=== PATIENT | female | born 1980 | race African-American/Black ===

== ENCOUNTER 2020-03-30 13:17 | Day surgery (SDC) | payer OTHER, SELFPAY ==
[2020-03-30 13:59] VITALS: BMI 22.7
[2020-03-30] MEDS ORDERED: hydrALAZINE 20 MG/ML VIAL SLOW IVP PRN (14:01)
--- NOTE | 2020-03-31 08:02 | PRG ---
DATE OF SERVICE: 03/30/2020 PRIMARY OB: None. CHIEF COMPLAINT: Decreased movement. HISTORY OF PRESENT ILLNESS: The patient is a 40-year-old, G2, P1, living 0 female with an intrauterine at 36 weeks and 3 days, who moved here from [place] last Monday. The patient reports that she has not been feeling her baby move as often as she used to. She reports that she did kick counting yesterday that was fine last night, but this morning, it has been concerning. She has a history of a 29-week stillbirth delivery about 20 years ago. She also has a past medical history significant for sarcoidosis, for which, she is not needing treatment at this time. The patient reports that she had been receiving regular care in [place] prior to her moving here. The patient denies fever, cough, headache, or shortness of breath. She does report she is starting to feel in the last month or so chest pains consistent with her sarcoidosis that are not her primary concern at this time. The patient denies nausea or vomiting. She does report constipation has been a chronic problem. Denies diarrhea. Denies any new rashes, hip problems, knee problems, muscle weakness. She denies vaginal bleeding, change in her discharge, urinary urgency, or frequency. PAST MEDICAL HISTORY: Sarcoidosis and anemia. PAST SURGICAL HISTORY: Negative. ALLERGIES: NO KNOWN DRUG ALLERGIES. MEDICATIONS: vitamins, iron, and calcium. OB LABS: Unavailable at the time of dictation. REVIEW OF SYSTEMS: Per HPI. PHYSICAL EXAMINATION: VITAL SIGNS: Blood pressure is 136/85, heart rate of 92, respiratory rate 16. GENERAL: She appears to be in no acute distress. She is alert and oriented, cooperative, pleasant to interact with. HEAD: Normocephalic and atraumatic. LUNGS: Clear to auscultation bilaterally. HEART: Has a regular rate and rhythm. ABDOMEN: Gravid and soft, nontender. EXTREMITIES: Nontender, nonedematous. : Has been deferred at this time. heart tracing shows the fetus with a baseline in the 130s with moderate long-term variability, positive 15 x 15 accelerations, no decelerations, no contractions on the monitor. Group B strep has been collected by the nursing staff. ASSESSMENT AND PLAN: The patient is a 40-year-old, G2, P1, living 0 female with an intrauterine at 36 weeks and 3 days by her stated due date. The patient has a reactive NST. Reassurance has been given to her concerning her baby's immediate status. She has been counseled to seek medical attention quickly, also to acquire her record as this will help facilitate establishing care with a provider. We did offer to introduce her to the Family Practice Residency Program here as they are here staffing the hospital and may be able to quickly see her for this care. The patient was acceptable to this and she has been introduced to the Family Practice Team. Group B strep has been collected as she is due now for that testing. Otherwise, no other testing has been done. The patient will be discharged home with reassurance. Job ID: [id number]
== END 2020-03-30 15:15 | disposition home or self-care (01) ==
LOC: L&D/OP 13:17
PROVIDERS: ATTEND Obstetrics & Gynecology
DX: O36.8130 Decreased fetal movements, third trimester, not applicable or unspecified (principal); O09.293 Supervision of pregnancy with other poor reproductive or obstetric history, third trimester; O99.013 Anemia complicating pregnancy, third trimester; D64.9 Anemia, unspecified; Z3A.36 36 weeks gestation of pregnancy; Z79.899 Other long term (current) drug therapy
CPT/HCPCS: 87081

== ENCOUNTER 2020-04-15 00:36 | Inpatient (IN) | payer MEDICAID, SELFPAY ==
[2020-04-15 01:05] VITALS: BMI 23.6
--- NOTE | 2020-04-15 02:14 | PDOC.FPRHP ---
- History of Present Illness Chief Complaint: Vaginal spotting History of Present Illness: 40 year old at 38.6 wks by LMP/10 wk sono presents with one episode of vaginal spotting. She states she went to the restroom and noticed blood when wiping on toilet paper, as well as in toilet. Patient did not have any spotting or bleeding on pad. She states she has gone to the restroom since that time and not noted any vaginal bleeding or spotting. Patient denies any leaking of fluid or vaginal discharge. She endorses contractions, but they are mild and intermittent. Patient endorses good movement. She was seen in ultrasound clinic earlier today for BPP and noted to have borderline LEÓN. Patient has history of IUFD at 28 wks, AMA, and sarcoidosis. - Allergies/Adverse Reactions Allergies Allergy/AdvReac Type Severity Reaction Status Date / Time No Known Allergies Allergy Verified 04/15/20 00:49 - Home Medications Medication Instructions Recorded Confirmed Type Aspirin [Children's Aspirin] 81 mg PO DAILY 03/30/20 04/15/20 History Calcium Carb/Vitamin D3/Vit K1 1 tablet PO DAILY 03/30/20 04/15/20 History [Calcium + D Soft Chewable Tablet] Ferrous Sulfate [Iron] 325 mg PO DAILY 03/30/20 04/15/20 History Pnv No.95/Ferrous Fum/Folic AC 1 tablet PO DAILY 03/30/20 04/15/20 History [ Tablet] - History OB Hx: IUFD at 28 wks, AMA, Thrombocytopenia (suspect gestational), Late transfer of care [facility] [place] Hx: Denies history of STD's. Denies abnormal Pap smear. PMH: Sarcoidosis Social Hx: Denies tobacco, alcohol, or drug use - Review of Systems General: denies: fever/chills, fatigue Eyes: denies: vision changes ENT: denies: nasal congestion, rhinorrhea Respiratory: denies: cough, congestion, shortness of breath Cardiovascular: denies: chest pain, palpitation, edema Gastrointestinal: reports: other (Endorses occasional contractions). denies: nausea, vomiting, diarrhea Genitourinary: reports: other (Endorses vaginal spotting). denies: dysuria Skin: denies: rashes, lesions Musculoskeletal: denies: pain, tenderness Neurological: denies: numbness, weakness Psychological: reports: anxiety, depression - Vital signs BP: 113/73 HR: 85 RR: 18 Tmax: 98.9F Wt: 70.3 kg - Physical Exam Constitutional: NAD, awake, alert and oriented, well developed HEENT: EOMI, grossly normal vision, grossly normal hearing Heart: RRR Lungs: no respiratory distress Abdomen: soft -Abdomen: Palpable contractions Neurological: no focal deficit Skin: no rash/lesions, capillary refill <2 seconds Psychiatric: normal mood and affect, good judgment and insight Additional comment: Speculum exam: Difficult exam, limited by patient tolerance. Pooling of dark red blood in vagina. Even after blood removed with swab, continued to pool. Difficulty visualizing opening of cervix due to patient tolerance. SVE /-1 at 1:15 AM by nurse (no vaginal bleeding noted at that time) FMR H&P: Results - Labs Result Diagrams: 04/15/20 03:31 FMR H&P: A/P - Problem List (1) Vaginal bleeding during Current Visit: Yes Status: Acute Code(s): O46.90 - ANTEPARTUM HEMORRHAGE, UNSPECIFIED, UNSPECIFIED TRIMESTER (2) Term Current Visit: Yes Status: Acute Code(s): Z34.90 - ENCNTR FOR SUPRVSN OF NORMAL , UNSP, UNSP TRIMESTER (3) History of IUFD Current Visit: Yes Status: Acute Code(s): Z87.59 - PERSONAL HISTORY OF COMP OF PREG, CHLDBRTH AND THE PUERP (4) Advanced maternal age (AMA) in Current Visit: Yes Status: Acute Code(s): [id number] - (5) Sarcoidosis Current Visit: Yes Status: Acute Code(s): D86.9 - SARCOIDOSIS, UNSPECIFIED (6) Gestational thrombocytopenia Current Visit: Yes Status: Acute Code(s): O99.119 - OTH DIS OF BLD/BLD-FORM ORG/IMMUN MECHNSM COMP PREG,UNSP TRI; D69.6 - THROMBOCYTOPENIA, UNSPECIFIED - Plan 40 year old at 38.5 wks by LMP/10 wk sono presents with vaginal spotting TIUP - Vaginal spotting, with sudden onset vaginal bleeding during course of triage - Concern for placental abruption vs. cervical change - Category I strip - Speculum exam with pooling of blood in vagina - Admit to L&D. If patient not making cervical change, will perform contraction stress test with pitocin to ensure tolerance of labor given vaginal bleeding and concern for possible abruption. - Counseled on potential for C/S if NRFHT's, consents signed - LEÓN appx 8 cm - SVE at 1:15 AM /-1. Will recheck in several hours and assess for cervical change. Hx IUFD - Per MFM, delivery recommended between 38-39 wks - Uncertain etiology AMA - On ASA during Anemia of - Stable Gestational thrombocytopenia - Consider steroids and/or platelets if platelets <75 for procedural purposes - Platelets <100 on 3T labs Sarcoidosis - Consider CXR prior to d/c Dispo: Admit to L&D. Augmentation of necessary. Bonnie Arceo, DO PGY-3 FMR H&P: Upper Level - Plan Date/Time: 04/15/202 I, [], have evaluated this patient and agree with findings/plan as outlined by international freight forwarder resident. Pertinent changes/additions are listed here. Addendum - Attending - Attending Attestation Date/Time: 04/15/20311 I personally evaluated the patient and discussed the management with Dr. Arceo I agree with the History, Examination, Assessment and Plan documented above with any addition or exceptions noted below. 40 yo at 38.6 wk presents with vaginal spotting. Has IOL scheduled tomorrow for hx of IUFD at 27 wk. Patient intolerant of SVE. Following first SVE , patient noted fluid leaking. Gross blood was noted at this time but unable to completely evaluate with speculum exam. LEÓN on US was 8-9 cm. FTH reassuring. Will admit for vaginal bleeding. Placenta anterior with no concern for previa/ low lying. Will allow patient to rest and observe. If signs of distress, will proceed with primary LTCS. This was discussed with the patient who expressed understanding.
[2020-04-15] MEDS ORDERED: NS / Oxytocin 40 units/1000ml 1,000 ML IV PRN (02:47)
[2020-04-15] MEDS ORDERED: Promethazine HCl 25 MG/ML VIAL IM PRN (02:47)
[2020-04-15] MEDS ORDERED: Misoprostol 200 MCG TAB PR PRN (02:47)
[2020-04-15] MEDS ORDERED: Ondansetron PF 4 MG/2 ML Vial IVP PRN (02:47)
[2020-04-15] MEDS ORDERED: hydrALAZINE 20 MG/ML VIAL SLOW IVP PRN ×2 (02:47→14:58)
[2020-04-15] MEDS ORDERED: Lidocaine 1% (PF) 30 ML VIAL SC PRN (02:47)
[2020-04-15] MEDS ORDERED: Ibuprofen 800 MG TAB PO PRN (02:47)
[2020-04-15] MEDS: Lactated Ringer's 1,000 ML IV SCH ×3 (03:25→23:27)
[2020-04-15 04:01] LABS: Hemoglobin 12.8 g/dL (12.0-16.0); Mean Corpuscular HGB CONC 34.4 g/dL (32.0-36.0); Mean Corpuscular Volume 95.9 fL (78.0-98.0); Mean Platelet Volume 10.1 fL (7.4-10.4); Platelet Count 125 thou/uL (130-400); RBC Distribution Width 11.8 % (11.5-14.5); Red Blood Cell (RBC) Count 3.88 mill/uL (4.20-5.40); White Blood Cell (WBC) Count 8.6 thou/uL (4.8-10.8)
[2020-04-15 04:35] LABS: Syphilis Antibody Nonreactive (Nonreactive); Syphilis Antibody Index 0.03 S/CO (<1.00 Non-Reactive)
[2020-04-15 04:36] LABS: Hep B Surf Ag Non-Reactive S/CO (NonReactive)
--- NOTE | 2020-04-15 04:43 | PDOC.LDPN ---
Labor & Delivery Progress Note - Subjective Subjective: painful contractions - Objective Vital signs reviewed and normal: yes General: NAD Uterine fundus: non tender SVE: 4:30 Dilation: 2 Effacement: 50% Station: -1 FHT: category 1, variability present [place] contractions every: q2-5 min - Assessment (1) Vaginal bleeding during Code(s): O46.90 - ANTEPARTUM HEMORRHAGE, UNSPECIFIED, UNSPECIFIED TRIMESTER Current Visit: Yes Status: Acute (2) Term Code(s): Z34.90 - ENCNTR FOR SUPRVSN OF NORMAL , UNSP, UNSP TRIMESTER Current Visit: Yes Status: Acute (3) History of IUFD Code(s): Z87.59 - PERSONAL HISTORY OF COMP OF PREG, CHLDBRTH AND THE PUERP Current Visit: Yes Status: Acute (4) Advanced maternal age (AMA) in Code(s): [id number] - Current Visit: Yes Status: Acute (5) Sarcoidosis Code(s): D86.9 - SARCOIDOSIS, UNSPECIFIED Current Visit: Yes Status: Acute (6) Gestational thrombocytopenia Code(s): O99.119 - OTH DIS OF BLD/BLD-FORM ORG/IMMUN MECHNSM COMP PREG,UNSP TRI ; D69.6 - THROMBOCYTOPENIA, UNSPECIFIED Current Visit: Yes Status: Acute Plan: continue plan of care -: SVE 2/50/-1, posterior, soft. Minimal amount of dark red blood on glove with check. Suspect bleeding from cervical change. Will continue to monitor. Isai q2-5 minutes. Consider starting pitocin if no change at next check. Patient does not desire epidural at this time. Will continue to monitor and augment as necessary. Bonnie Arceo, DO PGY-3
[2020-04-15] MEDS: Butorphanol Tartrate 1 MG/ML VIAL SLOW IVP PRN ×3 (05:36→13:19)
--- NOTE | 2020-04-15 07:51 | PDOC.LDPN ---
Labor & Delivery Progress Note - Subjective Subjective: painful contractions, vaginal pressure - Objective Vital signs reviewed and normal: yes General: breathing through contractions SVE: 2/50/-1 FHT: category 1, variability present [place] contractions every: q5-6 mins - Assessment (1) Advanced maternal age (AMA) in Code(s): [id number] - Current Visit: Yes Status: Acute (2) Gestational thrombocytopenia Code(s): O99.119 - OTH DIS OF BLD/BLD-FORM ORG/IMMUN MECHNSM COMP PREG,UNSP TRI ; D69.6 - THROMBOCYTOPENIA, UNSPECIFIED Current Visit: Yes Status: Acute (3) History of IUFD Code(s): Z87.59 - PERSONAL HISTORY OF COMP OF PREG, CHLDBRTH AND THE PUERP Current Visit: Yes Status: Acute (4) Sarcoidosis Code(s): D86.9 - SARCOIDOSIS, UNSPECIFIED Current Visit: Yes Status: Acute (5) Term Code(s): Z34.90 - ENCNTR FOR SUPRVSN OF NORMAL , UNSP, UNSP TRIMESTER Current Visit: Yes Status: Acute (6) Vaginal bleeding during Code(s): O46.90 - ANTEPARTUM HEMORRHAGE, UNSPECIFIED, UNSPECIFIED TRIMESTER Current Visit: Yes Status: Acute Plan: pitocin for augmentation -: 40 year old at 38.5 wks by LMP/10 wk sono presents with vaginal spotting TIUP - Concern for placental abruption vs. cervical change - Category I strip. [place] 5. No change. - Start pitocin at this time. Will monitor strip to see if baby can tolerate stress. Hx IUFD - Per MFM, delivery recommended between 38-39 wks - Uncertain etiology AMA - On ASA during Anemia of - Stable Gestational thrombocytopenia - Consider steroids and/or platelets if platelets <75 for procedural purposes - Platelets <100 on 3T labs Sarcoidosis - Consider CXR prior to d/c Dispo: start pitocin
[2020-04-15] MEDS ORDERED: NS w/ Oxytocin 10 units 500 ML ONE (08:08)
[2020-04-15] MEDS ORDERED: NS w/ Oxytocin 10 units 500 ML IV SCH (08:15)
[2020-04-15] MEDS: NS w/ Oxytocin 10 units 500 ML IV SCH (09:05)
--- NOTE | 2020-04-15 12:03 | PDOC.LDPN ---
Labor & Delivery Progress Note - Subjective Subjective: painful contractions, vaginal pressure - Objective Vital signs reviewed and normal: yes General: breathing through contractions SVE: 8/C/0 FHT: category 1 [place] contractions every: q2-3 min -: A/P: 1) IUP@ 38 6/7 weeks in active labor -Cat 1 FHTs. Significant cervical change from last exam. Continue pitocin. Anticipate soon.
--- NOTE | 2020-04-15 14:12 | PDOC.OPDEL ---
OB Operative/Delivery Note Delivery Dr/Surgeon: Lg Pre-Delivery Diagnosis: active labor Procedure/Post Delivery Dx: spontaneous vaginal delivery Anesthesia: none - Findings A Sex: male - 1 min: 9 - 5 min: 9 - Additional Findings/Plan Placenta delivered: spontaneous Repaired Obstetrical Laceration: 2nd degree Estimated blood loss: QBL 133 ml Compilations/Other Findings: Delivering Physician: Lg Attending: Jose Procedure: Spontaneous Vaginal Delivery Anesthesia: Local for Repair QBL: 133 ml Pre-op Diagnosis: 1. Term intrauterine in labor 2. Hx of 28 wk IUFD, Hx of chlamydia, Sarcoidosis, AMA, Thrombocytopenia, Adjustment D/O Post-op Diagnosis: 1. Term intrauterine , delivered 2. same as above Indications: A 40 y/o female presents in active labor Delivery Note: This is 40 yo F @ 38.5 wks who delivered a viable M at 1302 on 04/15/20. Following an uneventful antepartum course, a vigorous M was delivered over an intact perineum. Anterior Shoulder and then remainder of the body delivered. No nuchal cord. The head was held down and mouth and nares were bulb suctioned. Cord clamped and cut and cord blood collected. Placenta delivered intact in the [place] with a 3 vessel cord noted. Fundal massage was performed and the fundus was firm. The cervix and vagina were inspected and 2 degree laceration noted and repaired with 3-0 vicryl in the usual fashion with good approximation and hemostasis after a local anesthetic, lidocaine w/o epinephrine, was injected at site. went to nursery in good condition for routine care. Apgars were 9/9 at 1 & 5 minutes, respectively. Patient tolerated delivery well and went to after routine recovery/care. Rory Linton DO Post delivery plan: routine recovery Addendum - Attending - Attending Attestation Date/Time: 04/15/20 1751 I was present and supervised the of a viable male over an intact perineum to this 40 yo female @38 5/7 weeks. OP position. Shoulders and body delivered easily. Placenta delivered spontaneously and intact. 3V cord. Small 2* perineal lac repaired with 3-0 vicryl in usual fashion. Good hemostasis. CUM=639 mL. Infant and mother in stable condition. Residents: M[facility]
[2020-04-15] MEDS ORDERED: NS / Oxytocin 40 units/1000ml 1,000 ML IV SCH (14:58)
[2020-04-15] MEDS ORDERED: Milk Of Magnesia 30 ML UDCUP PO PRN (14:58)
[2020-04-15] MEDS ORDERED: Benzocaine-Menthol 82.5 ML CAN TOP PRN (14:58)
[2020-04-15] MEDS ORDERED: Lanolin Ointment 7 GM TUBE TOP PRN (14:58)
[2020-04-15] MEDS ORDERED: Bisacodyl 10 MG SUPP PR PRN (14:58)
[2020-04-15] MEDS ORDERED: Preparation H Suppository PR PRN (16:59)
[2020-04-15] MEDS: Ferrous Sulfate 325 MG TAB PO SCH (18:55)
[2020-04-15] MEDS: Ibuprofen 800 MG TAB PO SCH (22:42)
[2020-04-15] MEDS: Docusate Calcium (SURFAK) 240 MG CAP PO SCH (22:42)
[2020-04-16] MEDS: Lactated Ringer's 1,000 ML IV SCH ×3 (03:26→17:06)
[2020-04-16] MEDS: Ibuprofen 800 MG TAB PO SCH ×3 (05:25→21:07)
--- NOTE | 2020-04-16 06:36 | PDOC.OBPPN ---
FMR OB PN: Subj - Interval History Hospital Day: 2 Day: Day 1 Pt is doing well. She has some abdominal pain, currently taking ibuprofen. She is passing flatus. Baby is having difficulty latching so she is supplemental feeding. FMR OB PN: Obj - Maternal Vital signs: BP: 109/72 HR: 69 RR: 16 Tmax: afebrile Pox: 99% on RA Wt: 70 kg - Urine output I&O: 04/14/20 04/15/20 04/16/20 06:59 06:59 06:59 Output Total 215 Balance -215 FMR OB PN: Exam - Physical Exam General: NAD, awake, alert and oriented HEENT: PERRLA, EOMI Heart: RRR, normal S1/S2 General: CTAB, no respiratory distress, no wheezing Abdomen: soft, bowel sound present Deviation from normal: mildly tender abdomen Neurological: cranial nerves II through XII intact, sensation to pain,touch and proprioception grossly normal Skin: no rash, capillary refill <2 seconds Lymphatic: no purpura, no petechia Psychiatric: intact recent and remote memory, good judgement and insight FMR OB PN: Data - Labs Lab results: Laboratory Results - last 24 hr 04/15/20 06:19 Blood Type B POSITIVE FMR OB PN: A/P - Problem List (1) Advanced maternal age (AMA) in Current Visit: Yes Status: Acute Code(s): [id number] - (2) Gestational thrombocytopenia Current Visit: Yes Status: Acute Code(s): O99.119 - OTH DIS OF BLD/BLD-FORM ORG/IMMUN MECHNSM COMP PREG,UNSP TRI; D69.6 - THROMBOCYTOPENIA, UNSPECIFIED (3) History of IUFD Current Visit: Yes Status: Acute Code(s): Z87.59 - PERSONAL HISTORY OF COMP OF PREG, CHLDBRTH AND THE PUERP (4) Sarcoidosis Current Visit: Yes Status: Acute Code(s): D86.9 - SARCOIDOSIS, UNSPECIFIED (5) Term Current Visit: Yes Status: Acute Code(s): Z34.90 - ENCNTR FOR SUPRVSN OF NORMAL , UNSP, UNSP TRIMESTER (6) Vaginal bleeding during Current Visit: Yes Status: Acute Code(s): O46.90 - ANTEPARTUM HEMORRHAGE, UNSPECIFIED, UNSPECIFIED TRIMESTER Disposition: 40 year old at 38.5 wks by LMP/10 wk sono presents with vaginal spotting # Term Delivery 2nd Degree Perineal Laceration - pt is doing well. Continue PNV. Monitor H/H this am. - motrin for pain scheduled, will add tylenol - consult cm # Hx IUFD # AMA # Anemia of - Stable, continue PNV - AM H/H # Gestational thrombocytopenia - monitor, no signs of bleeding Sarcoidosis - Consider CXR prior to d/c Dispo: monitor for 1 more day as this is first viable Discussion: Date/Time: 04/16/20 0636 This H&P was discussed with [] and [] who agree with the above documentation and plan. Addendum - Attending - Attending Attestation Date/Time: 04/16/20 2693 I personally evaluated the patient and discussed the management with Dr. Linton I agree with the History, Examination, Assessment and Plan documented above with any addition or exceptions noted below - Patient without .complaints. Ambulating/voiding. Afebrile VSS. A/P: 1) PPD#1 s/p - continue routine care; H/H stable
[2020-04-16 07:14] LABS: Hemoglobin 11.3 g/dL (12.0-16.0); Mean Corpuscular Hemoglobin 32.8 pg (27.0-31.0); Mean Corpuscular Volume 96.5 fL (78.0-98.0); Mean Platelet Volume 9.7 fL (7.4-10.4); Platelet Count 102 thou/uL (130-400); RBC Distribution Width 11.8 % (11.5-14.5); Red Blood Cell (RBC) Count 3.45 mill/uL (4.20-5.40); White Blood Cell (WBC) Count 11.6 thou/uL (4.8-10.8)
[2020-04-16] MEDS ORDERED: Adacel (T-DAP) 0.5 ML SYRINGE IM ONE (09:00)
[2020-04-16] MEDS: Docusate Calcium (SURFAK) 240 MG CAP PO SCH ×2 (09:26→21:07)
[2020-04-16] MEDS: Prenatal Vitamin 1 TAB PO SCH (09:26)
[2020-04-16] MEDS: Acetaminophen 500 MG TAB PO PRN ×3 (09:26→22:57)
[2020-04-16] MEDS: NS w/ Oxytocin 10 units 500 ML IV SCH (09:27)
[2020-04-16] MEDS: Ferrous Sulfate 325 MG TAB PO SCH ×2 (09:27→15:27)
[2020-04-16] MEDS ORDERED: Acetaminophen 500 MG TAB PO SCH (09:30)
[2020-04-17] MEDS: Lactated Ringer's 1,000 ML IV SCH (05:28)
[2020-04-17] MEDS: Ibuprofen 800 MG TAB PO SCH ×2 (05:28→14:10)
[2020-04-17] MEDS: Acetaminophen 500 MG TAB PO PRN (05:30)
[2020-04-17 06:39] LABS: Hemoglobin 11.3 g/dL (12.0-16.0); Mean Corpuscular HGB CONC 33.3 g/dL (32.0-36.0); Mean Corpuscular Hemoglobin 32.4 pg (27.0-31.0); Mean Corpuscular Volume 97.5 fL (78.0-98.0); Mean Platelet Volume 9.1 fL (7.4-10.4); Platelet Count 123 thou/uL (130-400); RBC Distribution Width 11.9 % (11.5-14.5); Red Blood Cell (RBC) Count 3.49 mill/uL (4.20-5.40); White Blood Cell (WBC) Count 8.9 thou/uL (4.8-10.8)
--- NOTE | 2020-04-17 07:19 | PDOC.PP ---
Post Progress Note Post Day #: 2 Subjective: Pt is doing well. She still has some cramping controlled with heating pad. She has one at home. She is eating well, had a bm. She would like OCP's for PP contraception. She will follow up with MAAME Hawkins. PO intake tolerated: yes Flatus: yes Ambulation: yes Vital Signs (12 hours) Temp Pulse Resp BP Pulse Ox 04/17/20 05:33 98.3 F 75 20 118/74 100 04/17/20 00:34 98.3 F 77 19 120/77 100 04/16/20 20:11 98.6 F 82 16 120/67 98 Weight Weight 70.307 kg - Physical Examination General: NAD Cardiovascular: no m/r/g, RRR Respiratory: clear to auscultation bilaterally Abdominal: + bowel sounds, appropriately TTP Neurological: no gross focal deficits Psychiatric: A&Ox3, normal affect Result Diagrams: 04/17/20 06:14 Additional Labs: Post Labs Blood Type B POSITIVE 04/15/20 06:19 Hep Bs Antigen Non-Reactive S/CO (NonReactive) 04/15/20 03:31 (1) Advanced maternal age (AMA) in Code(s): [id number] - Status: Acute (2) Gestational thrombocytopenia Code(s): O99.119 - OTH DIS OF BLD/BLD-FORM ORG/IMMUN MECHNSM COMP PREG,UNSP TRI ; D69.6 - THROMBOCYTOPENIA, UNSPECIFIED Status: Acute (3) History of IUFD Code(s): Z87.59 - PERSONAL HISTORY OF COMP OF PREG, CHLDBRTH AND THE PUERP Status: Acute (4) Sarcoidosis Code(s): D86.9 - SARCOIDOSIS, UNSPECIFIED Status: Acute (5) Term Code(s): Z34.90 - ENCNTR FOR SUPRVSN OF NORMAL , UNSP, UNSP TRIMESTER Status: Acute (6) Vaginal bleeding during Code(s): O46.90 - ANTEPARTUM HEMORRHAGE, UNSPECIFIED, UNSPECIFIED TRIMESTER Status: Acute - Assessment/Plan 40 year old delivered at 38.5 wks via : # Term Delivery # 2nd Degree Perineal Laceration - pt is doing well. Continue PNV. Monitor H/H this am. - motrin for pain scheduled, will add tylenol scheduled. Heating blanket is helping with cramping. - consult cm - consult # Hx IUFD # AMA # Anemia of - Stable, continue PNV - AM H/H # Gestational thrombocytopenia - monitor, no signs of bleeding Sarcoidosis - Consider CXR prior to d/c Dispo: d/c home today. Follow up with MAAME Hawkins in 2 weeks. OCP's for PP contraception. Addendum - Attending - Attending Attestation Date/Time: 04/17/20 [id number] I personally evaluated the patient and discussed the management with Dr. Linton I agree with the History, Examination, Assessment and Plan documented above with any addition or exceptions noted below - Patient without complaints. Afebrile VSS. A/P: 1) PPD#2 s/p - doing well/ D/c home later today.
[2020-04-17 08:25] VITALS: BP 114/71; TEMP 98.8
[2020-04-17] MEDS: Prenatal Vitamin 1 TAB PO SCH (09:15)
[2020-04-17] MEDS: NS w/ Oxytocin 10 units 500 ML IV SCH (09:15)
[2020-04-17] MEDS: Docusate Calcium (SURFAK) 240 MG CAP PO SCH (09:15)
[2020-04-17] MEDS: Ferrous Sulfate 325 MG TAB PO SCH (09:44)
[2020-04-17] MEDS ORDERED: Acetaminophen 500 MG TAB PO SCH (11:30)
== END 2020-04-17 16:20 | disposition home or self-care (01) | DRG 807 ==
LOC: L&D/OP 00:36 → L&D 03:01 → 3SW 17:34
PROVIDERS: ADMIT Family Medicine; ATTEND Family Medicine
PROC: 10E0XZZ Delivery of Products of Conception, External Approach (ICD-10-PCS; principal; 2020-04-15)
PROC: 0KQM0ZZ Repair Perineum Muscle, Open Approach (ICD-10-PCS; 2020-04-15)
DX: O45.093 Premature separation of placenta with other coagulation defect, third trimester (principal); Z37.0 Single live birth; D86.9 Sarcoidosis, unspecified; D69.6 Thrombocytopenia, unspecified; F43.20 Adjustment disorder, unspecified; O99.344 Other mental disorders complicating childbirth; O99.02 Anemia complicating childbirth; D64.9 Anemia, unspecified; O70.1 Second degree perineal laceration during delivery; Z86.19 Personal history of other infectious and parasitic diseases; Z79.899 Other long term (current) drug therapy; Z79.82 Long term (current) use of aspirin; Z87.59 Personal history of other complications of pregnancy, childbirth and the puerperium; Z3A.38 38 weeks gestation of pregnancy
CPT/HCPCS: 36415; 85027; 86780; 86850; 86900; 86901; 87340; J0595; J2590